=== PATIENT | female | born 1970 | race Caucasian/White ===

== ENCOUNTER 2024-06-28 23:19 | Emergency (ER) | payer BC, OTHER ==
--- NOTE | 2024-06-28 23:27 | ERPHSYRPT ---
- History of Present Illness Time Seen by Provider: 06/28/24 23:26 Source: patient Exam Limitations: no limitations Physician History: This is a 53-year-old white female patient of nurse practitioner Rolf who arrives by private vehicle on her own. Patient states that she has not felt well for approximately 2 weeks. She was seen in urgent care clinic on 06/24/2024 and they placed her on a Medrol Dosepak which she only took for a few days because she felt it was making her heart race. Patient has had prednisone in the past without any ill effects. Patient states she is also had Keflex in the past without any ill effects. Her symptoms primarily have been cough, sore throat and bodyaches. Patient works at the local [employer] and is exposed to a number of individuals that could have viral and bacterial illnesses. Patient has a history of hypertension and diabetes. She denies chest pain. She denies abdominal pain. She has not had any nausea vomiting or diarrhea symptoms. Timing/Duration: worse Cough Quality/Degree: mild, dry cough Possible Cause: no prior episodes Associated Symptoms: cough, muscle aches, sore throat Allergies/Adverse Reactions: No Known Drug Allergies Allergy (Verified 06/28/24 23:57) Home Medications: Empagliflozin [Jardiance] 10 mg PO DAILY 06/29/24 [History] Metoprolol Succinate 50 mg [Toprol Xl 50 MG] 50 mg PO DAILY 06/29/24 [History] Unknown Med 06/29/24 [History] lisinopriL [Zestril] 2.5 mg PO DAILY 06/29/24 [History] Travel Risk - International Travel Have you traveled outside of the country in past 3 weeks: No - Emerging Infectious Disease Are you exhibiting symptoms associated with any current EIDs: Yes Symptoms: Cough: New Onset, Headaches/Body Aches/, Other (Please Comment) (Sore throat) - Review of Systems Constitutional: No Symptoms Eyes: No Symptoms Ears, Nose, & Throat: Throat Pain Respiratory: Cough Cardiac: No Symptoms Abdominal/Gastrointestinal: No Symptoms Genitourinary Symptoms: No Symptoms Musculoskeletal: Arthralgias, Myalgias Skin: No Symptoms Neurological: No Symptoms Psychological: No Symptoms Endocrine: No Symptoms Hematologic/Lymphatic: No Symptoms Immunological/Allergic: No Symptoms All Other Systems: Reviewed and Negative - Past Medical History Pertinent Past Medical History: Yes - Past Surgical History Past Surgical History: Yes - Nursing Vital Signs Nursing Vital Signs: Initial Vital Signs Temperature 98.1 F 06/28/24 23:39 Pulse Rate 90 06/28/24 23:39 Respiratory Rate 16 06/28/24 23:39 Blood Pressure 135/87 06/28/24 23:39 O2 Sat by Pulse Oximetry 94 L 06/28/24 23:39 Pain Scale Pain Intensity 5 - Physical Exam General Appearance: no apparent distress, alert, anxiety Eye Exam: PERRL/EOMI, eyes nml inspection Ears, Nose, Throat Exam: normal ENT inspection, moist mucous membranes, pharyngeal erythema Neck Exam: normal inspection, non-tender, supple, full range of motion Respiratory Exam: normal breath sounds, lungs clear, airway intact, No chest tenderness, No respiratory distress Cardiovascular Exam: regular rate/rhythm, normal heart sounds, normal peripheral pulses Gastrointestinal/Abdomen Exam: soft, normal bowel sounds, No tenderness Pelvic Exam: not done Rectal Exam: not done Back Exam: normal inspection, normal range of motion, No CVA tenderness, No vertebral tenderness Extremity Exam: normal inspection, normal range of motion, pelvis stable Neurologic Exam: alert, oriented x 3, cooperative, personal care service provider II-XII nml as tested, normal mood/affect, nml cerebellar function, nml station & gait, sensation nml Skin Exam: normal color, warm, dry Lymphatic Exam: No inguinal node tender (L) SpO2 Interpretation: borderline oxygenation O2 Delivery: Room Air - Course Nursing assessment & vital signs reviewed: Yes Ordered Tests: Active Orders 24 hr Category Date Time Status CHEST 1 VIEW (PORTABLE) Stat Exams 06/28/24 23:58 Taken Medication Summary Discontinued Medications Generic Name Dose Route Start Last Admin Trade Name Nely PRN Reason Stop Dose Admin Hydrocodone Bitart/Acetaminophen 10 ml 06/29/24 00:50 06/29/24 01:10 Hydrocodone/Acetaminophen 5 Ml Udcup PO 06/29/24 00:51 10 ml STAT STA Administration Hydrocodone Bitart/Acetaminophen Confirm 06/29/24 01:04 Hydrocodone/Acetaminophen 5 Ml Udcup Administered 06/29/24 01:05 Dose 10 ml .ROUTE .STK-MED ONE Ceftriaxone Sodium 1,000 mg 06/29/24 00:50 06/29/24 01:10 Ceftriaxone Sodium 1000 Mg Inj Vial IM 06/29/24 00:51 1,000 mg STAT ONE Administration Ceftriaxone Sodium Confirm 06/29/24 01:05 Ceftriaxone Sodium 1000 Mg Inj Vial Administered 06/29/24 01:06 Dose 1,000 mg .ROUTE .STK-MED ONE Lidocaine HCl Confirm 06/29/24 01:05 Lidocaine Hcl 1% 20 Ml Mdv 20 Ml Ml Administered 06/29/24 01:06 Dose 2 ml .ROUTE .STK-MED ONE Prednisone 20 mg 06/29/24 00:50 06/29/24 01:09 Prednisone 20 Mg Tablet PO 06/29/24 00:51 20 mg STAT ONE Administration Prednisone Confirm 06/29/24 01:05 Prednisone 20 Mg Tablet Administered 06/29/24 01:06 Dose 20 mg .ROUTE .STK-MED ONE Lab/Rad Data: Laboratory Results 06/28/24 06/28/24 Range/Units 23:55 23:55 Influenza Type A Ag NEGATIVE (NEGATIVE) Influenza Type B Ag NEGATIVE (NEGATIVE) RSV (PCR) NEGATIVE (NEGATIVE) SARS-CoV-2 (PCR) NEGATIVE (NEGATIVE) Group A Strep Antibody NEGATIVE (NEGATIVE) - Progress Progress: improved, re-examined Air Movement: good Progress Note: 06/29/24 00:19 My medical decision making and the assignment of low to moderate complexity of this patient's medical issue today is based on review of the patient's past medical history, review of the patient's medication list, review the patient drug allergy list, history present illness and physical findings on examination. The workup in this patient includes viral swabs and group A strep test as well as a chest x-ray. Differential diagnosis includes but is not limited to viral illness, group A strep pharyngitis, bacterial pneumonia, upper respiratory infection 06/29/24 01:29 I interpreted the patient's laboratory data results. Based on the laboratory data results, there are no acute, emergent findings. Chest x-ray preliminary report was interpreted by me. The x-ray shows no acute cardiopulmonary process. Blood Culture(s) Obtained: No Antibiotics given: Yes Counseled pt/family regarding: lab results, diagnosis, need for follow-up, rad results Medical Desision Making - Diagnostic Testing Diagnostic test were ordered, analyzed, and reviewed by me: Yes Radiological Interpretation: Interpreted by me - Risk of complications The pt has a mod risk of morbidity or mortality based on: Need for prescription drug management - Departure Departure Disposition: Home Clinical Impression: Upper respiratory infection Condition: Stable Critical Care Time: No Referrals: CULLEN BEASLEY NP [Primary Care Provider] - Follow up/PCP as directed Additional Instructions: Drink plenty of clear liquids before advancing your diet. Monitor your blood sugar closely while taking the prednisone. Take your antibiotics and other medication as prescribed. Call your primary care provider on 07/01/2024 to make arrangements for follow-up appointment for further evaluation and management. Forms: Work/School Release Form Prescriptions: Prednisone 10 mg [Deltasone 10 mg] 10 mg PO TID #12 tablet Hydrocodone/Acetaminophen [Hydrocodone-Acetamn 7.5-325/15] 10 ml PO Q8H PRN #120 ml MDD 30 ml PRN Reason: Cough Albuterol 8 gm Mdi Hfa [Ventolin Hfa MDI] 8 gm IH Q4H #1 unit Azithromycin 250 mg [Zithromax 250 MG TABLET] 250 mg PO ZPACK #6 tablet
[2024-06-28 23:56] VITALS: TEMP 98.1
[2024-06-29] MEDS ORDERED: HYDROCODONE-ACETAMIN 2.5-108/5 ML SOLUTION ONE (01:04)
[2024-06-29] MEDS ORDERED: Rocephin 1000 MG INJ ONE (01:05)
[2024-06-29] MEDS ORDERED: DELTASONE 20 MG ONE (01:05)
[2024-06-29] MEDS ORDERED: XYLOCAINE 1% HCL 20 ML MDV ONE (01:05)
[2024-06-29] MEDS: DELTASONE 20 MG PO ONE (01:09)
[2024-06-29] MEDS: Rocephin 1000 MG INJ IM ONE (01:10)
[2024-06-29] MEDS: HYDROCODONE-ACETAMIN 2.5-108/5 ML SOLUTION PO STA (01:10)
[2024-06-29 01:16] LABS: INFLUENZA A NEGATIVE (NEGATIVE); INFLUENZA B NEGATIVE (NEGATIVE); RESPIRATORY SYNCTIAL VIRUS NEGATIVE (NEGATIVE); SARS-CoV-2 Xpert Express NEGATIVE (NEGATIVE)
[2024-06-29 01:19] VITALS: BP 112/64; PULSE 85; RESP 18; O2SAT 94
--- NOTE | 2024-06-29 06:57 | XRAY ---
Indication: Fever and cough. Comparison: None Portable apical lordotic chest inflated and clear. Heart not enlarged. Bony thorax intact. Impression: Nonacute chest.
== END 2024-06-29 01:41 | disposition home or self-care (01) ==
LOC: ED 23:19
DX: J06.9 Acute upper respiratory infection, unspecified (principal); R05.1 Acute cough; J02.9 Acute pharyngitis, unspecified; M79.10 Myalgia, unspecified site; I10 Essential (primary) hypertension; E11.9 Type 2 diabetes mellitus without complications; Z79.891 Long term (current) use of opiate analgesic; Z79.52 Long term (current) use of systemic steroids; Z79.84 Long term (current) use of oral hypoglycemic drugs
CPT/HCPCS: 0241U; 71045; 87651; 96372; 99283; J0696; A9270-GY

== ENCOUNTER 2024-12-13 18:16 | Emergency (ER) | payer BC ==
[2024-12-13 19:40] VITALS: TEMP 96.4; O2SAT 97
--- NOTE | 2024-12-13 20:03 | ERPHSYRPT ---
- History of Present Illness Time Seen by Provider: 12/13/24 19:50 Historian: patient, family Exam Limitations: no limitations Patient Subjective Stated Complaint: "I've been having pain in my left side for a couple days and I wasn't really able to pee. It scherer when I pee and I felt like I couldn't pee yesterday. I got a Toradol shot at work." Triage Nursing Assessment: Pt presents to ER with complaints of left sided abdominal pains x 2-3 days. States pain radiates from LUQ to LLQ and into left flank. Denies nausea, vomiting. States has had some diarrhea and trouble urinating. States had hesitancy to urinate yesterday and urgency today. Pt is alert and oriented x 3. Skin is pink, warm, and dry. Respirations are easy. Rates pain 6/10 scale. Allergies/Adverse Reactions: Penicillins Allergy (Verified 12/13/24 19:40) Home Medications: Metoprolol Succinate 50 mg [Toprol Xl 50 MG] 50 mg PO DAILY 06/29/24 [History] Sacubitril/Valsartan [Entresto 24 mg-26 mg Tablet] 1 tab PO DAILY 12/13/24 [History] Spironolactone 25 mg [Aldactone 25 MG] 25 mg PO DAILY 12/13/24 [History] Hx Tetanus, Diphtheria Vaccination/Date Given: Yes Hx Influenza Vaccination/Date Given: No Hx Pneumococcal Vaccination/Date Given: No Immunizations Up to Date: No Travel Risk - International Travel Have you traveled outside of the country in past 3 weeks: No - Emerging Infectious Disease Are you exhibiting symptoms associated with any current EIDs: No Symptoms: Cough: New Onset, Headaches/Body Aches/, Other (Please Comment) (Sore throat) - Past Medical History Pertinent Past Medical History: Yes Neurological History: No Pertinent History ENT History: No Pertinent History Cardiac History: Congestive Heart Failure Respiratory History: No Pertinent History Endocrine Medical History: No Pertinent History Musculoskeletal History: No Pertinent History GI Medical History: No Pertinent History History: No Pertinent History Psycho-Social History: No Pertinent History Female Reproductive Disorders: No Pertinent History - Past Surgical History Past Surgical History: Yes Neuro Surgical History: No Pertinent History Cardiac: No Pertinent History Respiratory: No Pertinent History Gastrointestinal: Cholecystectomy Genitourinary: No Pertinent History Musculoskeletal: Joint Replacement Female Surgical History: Tubal Ligation Other Surgical History: tubal ligation with problems- knicked arteries and had to open. knee, shoulder, carpal tunnel, sinus surgery - Female History Hx Last Menstrual Period: 6 years ago Hx Now: No - Social History Smoking Status: Former smoker Exposure to second hand smoke: No Drug Use: none - Social Determinants of Health Will the patient participate in the screening: Yes Do you worry about a steady place to live?: No Do you have any problems with any of the following?: No known problems In the past 12 months,have you had to go without utilities?: No Transportation Issues: No Has anyone in your support network made you feel unsafe?: No Have you or anyone in your house had to go w/o enough food: No - Nursing Vital Signs Nursing Vital Signs: Initial Vital Signs Temperature 96.4 F 12/13/24 19:33 Pulse Rate 81 12/13/24 19:33 Respiratory Rate 16 12/13/24 19:33 Blood Pressure 147/96 12/13/24 19:33 O2 Sat by Pulse Oximetry 97 12/13/24 19:33 Pain Scale Pain Intensity 6 - Physical Exam SpO2: 97 Ordered Tests: Active Orders 24 hr Category Date Time Status IV Insertion STAT Care 12/13/24 19:44 Active ABDOMEN AND PELVIS W/0 CONTRAS [CT] Stat Exams 12/13/24 19:44 Taken AMYLASE Stat Lab 12/13/24 20:20 Completed CBC W DIFF Stat Lab 12/13/24 20:20 Completed CMP Stat Lab 12/13/24 20:20 Completed LIPASE Stat Lab 12/13/24 20:20 Completed UA W/RFX UR CULTURE Stat Lab 12/13/24 19:46 Completed Medication Summary Discontinued Medications Generic Name Dose Route Start Last Admin Trade Name Freq PRN Reason Stop Dose Admin Hydromorphone HCl 1 mg 12/13/24 19:45 Hydromorphone 1 Mg/1ml Inj IV 12/13/24 19:46 STAT ONE Ondansetron HCl 4 mg 12/13/24 19:44 Ondansetron Hcl 4 Mg/2 Ml Vial IV 12/13/24 19:45 STAT ONE Lab/Rad Data: Laboratory Result Diagrams 12/13/24 20:20 12/13/24 20:20 Laboratory Results 12/13/24 12/13/24 12/13/24 Range/Units 20:20 20:20 19:46 WBC 6.5 (3.98-10.04) x10^3/uL RBC 3.71 L (3.93-5.22) x10^6/uL Hgb 13.2 (11.2-15.7) g/dL Hct 37.3 (34.1-44.9) % MCV 100.5 H (79.4-94.8) fL MCH 35.6 H (25.6-32.2) pg MCHC 35.4 (32.2-35.5) g/dL RDW 12.8 (11.7-14.4) % Plt Count 129 L (182-369) x10^3/uL MPV 9.6 (9.4-12.3) fL Gran % 61.8 (34.0-71.1) % Immature Gran % (Auto) 0.2 (0.001-0.429) % Nucleat RBC Rel Count 0.0 (0.00-0.2) % Eos # (Auto) 0.12 (0.04-0.36) x10^3/uL Immature Gran # (Auto) 0.01 (0.001-0.031) x10^3u/L Absolute Lymphs (auto) 1.67 (1.18-3.74) x10^3/uL Absolute Monos (auto) 0.67 (0.24-0.86) x10^3/uL Absolute Nucleated RBC 0.00 (0.00-0.012) x10^3u/L Lymphocytes % 25.6 (19.3-51.7) % Monocytes % 10.3 (4.7-12.5) % Eosinophils % 1.8 (0.7-5.8) % Basophils % 0.3 (0.1-1.2) % Absolute Granulocytes 4.04 (1.56-6.13) x10^3/uL Basophils # 0.02 (0.01-0.08) x10^3/uL Sodium 134 L (135-145) mmol/L Potassium 4.5 (3.5-5.1) mmol/L Chloride 102 (98-107) mmol/L Carbon Dioxide 20 L (22-30) mmol/L Anion Gap 16.8 H (5-15) MEQ/L BUN 28 H (7-17) mg/dL Creatinine 1.28 H (0.52-1.04) mg/dL Estimated GFR 49.8 ML/MIN Glucose 92 (74-106) mg/dL Calcium 9.1 (8.4-10.2) mg/dL Total Bilirubin 1.40 H (0.2-1.3) mg/dL AST 46 H (14-36) U/L ALT 31 (0-35) U/L Alkaline Phosphatase 62 (38-126) U/L Serum Total Protein 7.2 (6.3-8.2) g/dL Albumin 4.5 (3.5-5.0) g/dL Amylase 63 (30-110) U/L Lipase 164 (23-300) U/L Urine Color Yellow (Yellow) Urine Appearance Clear (Clear) Urine pH 5.5 (4.6-8.0) Ur Specific [place] 1.010 (1.005-1.030) Urine Protein Negative (Negative) Urine Glucose (UA) Negative (Negative) mg/dL Urine Ketones Negative (Negative) Urine Blood Negative (Negative) Urine Nitrite Negative (Negative) Urine Bilirubin Negative (Negative) Urine Urobilinogen 0.2 (0.2) mg/dL Ur Leukocyte Esterase Negative (Negative) U Hyaline Cast (Auto) NONE SEEN (0-2) /LPF Urine Microscopic RBC 0-2 (0-5) /HPF Urine Microscopic WBC 0-2 (0-5) /HPF Ur Epithelial Cells None Seen (None Seen) /HPF Urine Bacteria None Seen (None Seen) /HPF Urine Culture Reflexed NO (NO) - Progress Progress: improved, re-examined Progress Note: 12/13/24 21:24 My medical decision making and the assignment of moderate complexity to this patient's medical issue today is based on review of the patient's past medical history, review the patient's medication list, reviewed patient drug allergy list, history present illness and physical findings on examination. The workup in this patient includes placement of intravenous line, CBC, CMP amylase, lipase, urinalysis and CT scan of the abdomen pelvis without contrast. The patient refuses intravenous line placement. She also refuses any narcotic medication. Differential diagnosis includes but is not limited to urinary tract infection, pyelonephritis, ureterolithiasis, pancreatitis, colitis, diverticulitis I interpreted the patient's laboratory data results. There are no comparison labs from this hospital. The patient's GFR is 49.8. Creatinine is 1.28. Total bili is 1.4 AST is 46. There is no evidence of any acute, emergent medical issues based on the laboratory data results. CT scan of the abdomen pelvis without contrast was interpreted by the radiologist and I reviewed the impression. There were no comparison films. The radiologist impression states a 6 mm urinary bladder stone. Mild left hydronephrosis with tiny amount of perinephric fluid and mild hydroureter.. This is consistent with passage of a stone. Counseled pt/family regarding: lab results, diagnosis, rad results Medical Desision Making - Independent Historian Additional History obtained from: Family - Diagnostic Testing Diagnostic test were ordered, analyzed, and reviewed by me: Yes Radiological Interpretation: Reviewed by me, Teleradiologist Report - Risk of complications Low Risk: Low risk of morbidity from additional dx testing or treatment - Departure Departure Disposition: Home Clinical Impression: Left flank pain, Hydroureter, left, Hydronephrosis, left Condition: Stable Critical Care Time: No Referrals: CULLEN BEASLEY NP [Primary Care Provider] - Follow up/PCP as directed Additional Instructions: Drink plenty fluids. Use Tylenol and ibuprofen for pain and fever control. Take all your other medications as prescribed.
[2024-12-13 20:10] VITALS: RESP 18
[2024-12-13 20:22] LABS: Absolute Neutrophil Ct (ANC) 4.04 x10^3/uL (1.56-6.13); BASOPHIL % 0.3 % (0.1-1.2); Basophil (Absolute #) 0.02 x10^3/uL (0.01-0.08); Eosinophil % 1.8 % (0.7-5.8); Eosinophil (Absolute #) 0.12 x10^3/uL (0.04-0.36); Hematocrit 37.3 % (34.1-44.9); Hemoglobin 13.2 g/dL (11.2-15.7); IMMATURE GRAN # 0.01 x10^3u/L (0.001-0.031); IMMATURE GRAN % 0.2 % (0.001-0.429); Lymphocyte (Absolute #) 1.67 x10^3/uL (1.18-3.74); Lymphocytes % 25.6 % (19.3-51.7); Mean Cell Volume 100.5 fL (79.4-94.8); Mean Corpuscular Hemoglobin 35.6 pg (25.6-32.2); Mean Corpuscular Hgb Concent. 35.4 g/dL (32.2-35.5); Mean Platelet Volume 9.6 fL (9.4-12.3); Monocyte (Absolute #) 0.67 x10^3/uL (0.24-0.86); Monocytes % 10.3 % (4.7-12.5); Neutrophil % 61.8 % (34.0-71.1); Platelet Count 129 x10^3/uL (182-369); Red Blood Count 3.71 x10^6/uL (3.93-5.22); Red Cell Distribution Width 12.8 % (11.7-14.4); White Blood Count 6.5 x10^3/uL (3.98-10.04)
[2024-12-13 20:30] LABS: Appearance Clear (Clear); Bacteria None Seen /HPF (None Seen); Bilirubin Negative (Negative); Blood Negative (Negative); Epithelial Cells None Seen /HPF (None Seen); Glucose, Urine Negative (Negative); Hyaline Casts NONE SEEN /LPF (0-2); Ketones Negative (Negative); Leukocyte Esterase Negative (Negative); Nitrite Negative (Negative); Ph 5.5 (4.6-8.0); Protein,Urine Dip Negative (Negative); RBC 0-2 /HPF (0-5); Urobilinogen 0.2 mg/dL (0.2); WBC 0-2 /HPF (0-5)
[2024-12-13 20:49] LABS: ALBUMIN 4.5 g/dL (3.5-5.0); ANION GAP 16.8 MEQ/L (5-15); BILIRUBIN,TOTAL 1.4 mg/dL (0.2-1.3); Calcium 9.1 mg/dL (8.4-10.2); Creatinine 1 1.28 mg/dL (0.52-1.04); EST GLOMERULAR FILTRATION RATE 49.8 ML/MIN; Potassium 4.5 mmol/L (3.5-5.1); Total Protein 7.2 g/dL (6.3-8.2)
[2024-12-13 21:29] VITALS: BP 169/92; PULSE 80
[2024-12-13] MEDS: Zofran 4 MG/2 ML VIAL IV ONE (21:35)
[2024-12-13] MEDS: Hydromorphone 1 mg/ml Injection IV ONE (21:36)
[2024-12-13] MEDS ORDERED: PYRIDIUM 200 MG ONE (21:41)
[2024-12-13] MEDS: PYRIDIUM 200 MG PO ONE (21:43)
--- NOTE | 2024-12-14 08:10 | XRAY ---
Indication: Left flank pain. Multiple contiguous axial images obtained through the abdomen and pelvis without contrast using renal stone protocol. Comparison: None Lung bases clear. Heart is not enlarged. Urinary bladder demonstrates 6 mm calculus adjacent to left UVJ. Mild left renal edema,, tiny perinephric fluid, hydronephrosis, and hydroureter favors recent passage of said calculus. No other renal calculus/calcifications. Noncontrasted stomach and bowel loops appear nonobstructed. Previous cholecystectomy. No free air. Remaining liver, pancreas, spleen, adrenal glands, right kidney, right ureter, and uterus are unremarkable for noncontrast exam. Aorta is normal in course and caliber. Multiple distal aortocaval surgical clips. Osseous structures intact with mild L4-S1 degenerative spondylosis with 2 mm L4 listhesis. Impression: 1. 6 mm urinary bladder calculus with left-sided obstructive uropathy findings as detailed. 2. Incidental L4-S1 degenerative spondylosis with minimal grade 1 L4 listhesis.
== END 2024-12-13 21:54 | disposition home or self-care (01) ==
LOC: ED 18:16
DX: N13.30 Unspecified hydronephrosis (principal); N13.4 Hydroureter; R10.12 Left upper quadrant pain; R10.32 Left lower quadrant pain; R10.9 Unspecified abdominal pain; R39.15 Urgency of urination; Z79.899 Other long term (current) drug therapy
CPT/HCPCS: 36415; 74176; 80053; 81001; 82150; 83690; 85025; 99284; A9270-GY

== ENCOUNTER 2024-12-24 04:52 | Emergency (ER) | payer BC ==
[2024-12-24 05:30] VITALS: TEMP 96.6
[2024-12-24] MEDS ORDERED: DECADRON 10MG INJ. ONE (05:51)
[2024-12-24] MEDS ORDERED: TORAdol 30 mg Injection ONE (05:51)
[2024-12-24] MEDS: TORAdol 30 mg Injection IM ONE (05:52)
--- NOTE | 2024-12-24 05:52 | ERPHSYRPT ---
- History of Present Illness Time Seen by Provider: 12/24/24 05:47 Source: patient Exam Limitations: no limitations Patient Subjective Stated Complaint: c/o back pain and spasms Triage Nursing Assessment: patient brought to ED by mother woth c/o of bilat back spasms and pain. patient states that the pain started yesterday and got worse this morning. patient rates pain 8/10 and says the pain radiates to her lower abdomen and down her legs. patient's vitals wnl, skin w/n/d, pulses normal, gait steady, patient doesn't appear to be in any distress at this time. Physician History: Patient is a 54-year-old female with a history of chronic back pain and spasms presents to our ED for evaluation of back pain. Patient's pain is normally treated with meloxicam. Patient reportedly ran out. Patient is currently scheduled to see her family doctor tomorrow. Patient states her back spasms got worse overnight and awoke her from her sleep. Patient rates her pain 8 out of 10. No trauma no fever. Pain tends to radiate into her buttock and suprapubic region. Patient was recently diagnosed with a kidney stone that had passed. Stone was sitting in her bladder. Patient had a CAT scan approximately 1 week ago. Blood work was normal. 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 Patient denies interval trauma. No fever no recent back procedure no saddle anesthesia no change in bowel bladder function. No lower extremity weakness. Patient otherwise feels well. She voices no other complaints or concerns at this time. Portions of this note were created with voice recognition technology. There may be grammatical, spelling, punctuation or sound alike errors Timing/Duration: today Method of Injury: unknown Quality: aching Back Pain Location: lumbar spine Back Pain Radiation: buttocks Severity of Pain-Max: moderate Severity of Pain-Current: mild Modifying Factors: Improves With: movement Associated Symptoms: denies symptoms Previous symptoms: no prior history Allergies/Adverse Reactions: Penicillins Allergy (Verified 12/24/24 05:22) Home Medications: Metoprolol Succinate 50 mg [Toprol Xl 50 MG] 50 mg PO DAILY 06/29/24 [History] Sacubitril/Valsartan [Entresto 24 mg-26 mg Tablet] 1 tab PO DAILY 12/13/24 [History] Spironolactone 25 mg [Aldactone 25 MG] 25 mg PO DAILY 12/13/24 [History] Meloxicam [Mobic] 15 mg PO DAILY 12/24/24 [History] Hx Tetanus, Diphtheria Vaccination/Date Given: No (unknown) Hx Influenza Vaccination/Date Given: No Hx Pneumococcal Vaccination/Date Given: No Travel Risk - International Travel Have you traveled outside of the country in past 3 weeks: No - Emerging Infectious Disease Are you exhibiting symptoms associated with any current EIDs: No Symptoms: Cough: New Onset, Headaches/Body Aches/, Other (Please Comment) (Sore throat) - Review of Systems Constitutional: No Symptoms, No Fever, No Chills Eyes: No Symptoms Ears, Nose, & Throat: No Symptoms Respiratory: No Symptoms, No Cough, No Dyspnea Cardiac: No Symptoms, No Chest Pain, No Edema, No Syncope Abdominal/Gastrointestinal: No Symptoms, No Abdominal Pain, No Nausea, No Vomiting, No Diarrhea Genitourinary Symptoms: No Symptoms, No Dysuria Musculoskeletal: No Symptoms, No Back Pain, No Neck Pain Skin: No Symptoms, No Rash Neurological: No Symptoms, No Dizziness, No Focal Weakness, No Sensory Changes Psychological: No Symptoms Endocrine: No Symptoms Hematologic/Lymphatic: No Symptoms Immunological/Allergic: No Symptoms All Other Systems: Reviewed and Negative - Past Medical History Pertinent Past Medical History: Yes Neurological History: No Pertinent History ENT History: No Pertinent History Cardiac History: Congestive Heart Failure Respiratory History: No Pertinent History Endocrine Medical History: No Pertinent History Musculoskeletal History: No Pertinent History GI Medical History: No Pertinent History History: No Pertinent History Psycho-Social History: No Pertinent History Female Reproductive Disorders: No Pertinent History - Past Surgical History Past Surgical History: Yes Neuro Surgical History: No Pertinent History Cardiac: No Pertinent History Respiratory: No Pertinent History Gastrointestinal: Cholecystectomy Genitourinary: No Pertinent History Musculoskeletal: Joint Replacement Female Surgical History: Tubal Ligation Other Surgical History: tubal ligation with problems- knicked arteries and had to open. knee, shoulder, carpal tunnel, sinus surgery - Female History Hx Last Menstrual Period: 8 years ago Hx Now: No (tubal) - Social History Smoking Status: Never smoker Exposure to second hand smoke: Yes Drug Use: none - Social Determinants of Health Will the patient participate in the screening: Yes Do you worry about a steady place to live?: No Do you have any problems with any of the following?: No known problems In the past 12 months,have you had to go without utilities?: No Transportation Issues: No Has anyone in your support network made you feel unsafe?: No Have you or anyone in your house had to go w/o enough food: No - Nursing Vital Signs Nursing Vital Signs: Initial Vital Signs Temperature 96.6 F 12/24/24 05:22 Pulse Rate 82 12/24/24 05:22 Respiratory Rate 19 12/24/24 05:22 Blood Pressure 112/84 12/24/24 05:22 O2 Sat by Pulse Oximetry 96 12/24/24 05:22 Pain Scale Pain Intensity 8 - Physical Exam General Appearance: no apparent distress, alert Eye Exam: PERRL/EOMI, eyes nml inspection Neck Exam: normal inspection, full range of motion, No meningismus, No midline tenderness Respiratory Exam: normal breath sounds, lungs clear, airway intact, No respiratory distress Cardiovascular Exam: regular rate/rhythm, normal heart sounds Gastrointestinal Exam: soft, No tenderness, No mass Extremity Exam: normal inspection, normal range of motion, No calf tenderness, No pedal edema Neurologic Exam: alert, oriented x 3, cooperative, 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 as tested, normal mood/affect, nml station & gait, sensation nml, No motor deficits Skin Exam: normal color, warm, dry, No rash Lymphatic Exam: No adenopathy SpO2 Interpretation: normal SpO2: 97 O2 Delivery: Room Air - Course Nursing assessment & vital signs reviewed: Yes Ordered Tests: Active Orders 24 hr Category Date Time Status UA W/RFX UR CULTURE Stat Lab 12/24/24 05:44 Completed Medication Summary Discontinued Medications Generic Name Dose Route Start Last Admin Trade Name Freq PRN Reason Stop Dose Admin Dexamethasone Sodium Phosphate 8 mg 12/24/24 05:44 12/24/24 05:53 Dexamethasone Sod Phosphate 10 Mg/Ml IM 12/24/24 05:45 8 mg STAT ONE Administration Dexamethasone Sodium Phosphate Confirm 12/24/24 05:51 Dexamethasone Sod Phosphate 10 Mg/Ml Administered 12/24/24 05:52 Dose 10 mg .ROUTE .STK-MED ONE Ketorolac Tromethamine 30 mg 12/24/24 05:44 12/24/24 05:52 Ketorolac Tromethamine 30 Mg/Ml Inj IM 12/24/24 05:45 30 mg STAT ONE Administration Ketorolac Tromethamine Confirm 12/24/24 05:51 Ketorolac Tromethamine 30 Mg/Ml Inj Administered 12/24/24 05:52 Dose 30 mg .ROUTE .STK-MED ONE Methocarbamol 500 mg 12/24/24 06:26 Methocarbamol 500 Mg Tablet PO 12/24/24 06:27 ONCE STA Lab/Rad Data: Laboratory Results 12/24/24 Range/Units 05:44 Urine Color Yellow (Yellow) Urine Appearance Clear (Clear) Urine pH 5.0 (4.6-8.0) Ur Specific Baxter 1.025 (1.005-1.030) Urine Protein Negative (Negative) Urine Glucose (UA) Negative (Negative) mg/dL Urine Ketones Trace A (Negative) Urine Blood Negative (Negative) Urine Nitrite Negative (Negative) Urine Bilirubin Negative (Negative) Urine Urobilinogen 0.2 (0.2) mg/dL Ur Leukocyte Esterase Negative (Negative) U Hyaline Cast (Auto) NONE SEEN (0-2) /LPF Urine Microscopic RBC 0-2 (0-5) /HPF Urine Microscopic WBC 0-2 (0-5) /HPF Ur Epithelial Cells Moderate A (None Seen) /HPF Urine Bacteria None Seen (None Seen) /HPF Urine Culture Reflexed NO (NO) - Progress Progress: improved Progress Note: 54-year-old female presents to our ED with acute on chronic back pain. Physical exam reveals some tenderness and spasms to the lumbar spine area. Patient received IM Toradol and Decadron. Patient received an oral dose of Robaxin per her request. A prescription for Robaxin and Toradol forwarded to patient's pharmacy. Patient was in our ED on December 14 diagnosed with a kidney stone that had passed. She had a CT then. She also had labs and urine which were all normal. No interval trauma no fever no saddle anesthesia no change in bowel bladder function. UA negative for UTI. Medications administered. No indication for further workup at this time. Vitals are within normal limits. Will discharge patient home. Patient has a follow-up appointment with her doctor tomorrow. She voices no other complaints or concerns at this time. Portions of this note were created with voice recognition technology. There may be grammatical, spelling, punctuation or sound alike errors Complexity of problem addressed is moderate acute complicated. No critical care time. Complex of data reviewed and analyzed is moderate. Test ordered chest reviewed results analyzed and correlated clinically with history and physical exam. Risk of complication and or risk of morbidity/mortality of patient management is moderate. A prescription for Toradol and Robaxin forwarded to patient's pharmacy. Vital stable. Time spent to discharge patient is approximately 10 minutes. Plan of care established for shared decision making. No social determinants of health present to impede follow-up. Portions of this note were created with voice recognition technology. There may be grammatical, spelling, punctuation or sound alike errors 12/24/24 06:31 12/24/24 06:33 Counseled pt/family regarding: lab results, diagnosis, need for follow-up - Departure Departure Disposition: Home Clinical Impression: Back pain Condition: Stable Critical Care Time: No Referrals: CULLEN BEASLEY, SALES [employer]GRAM COORDINATOR [Primary Care Provider] - Follow up/PCP as directed Additional Instructions: Discharge/Care Plan ROSENDO BOURGEOIS was seen on 12/24/24 in the Emergency Room. The patient was counseled regarding Diagnosis,Lab results, Imaging studies, need for follow up and when to return to the Emergency Room. Prescriptions given: Discharge Note I have spoken with the patient and/or caregivers. I have explained the patient's condition, diagnosis and treatment plan based on the information available to me at this time. I have answered the patient's and/or caregiver's questions and addressed any concerns. The patient and/or caregivers have as good understanding of the patient's diagnosis, condition and treatment plan as can be expected at this point. The vital signs have been stable. The patient's condition is stable and appropriate for discharge from the emergency department. The patient will pursue further outpatient evaluation with the primary care physician or other designated or consulting physician as outlined in the discharge instructions. The patient and/or caregivers are agreeable to this plan of care and follow-up instructions have been explained in detail. The patient and/or caregivers have received these instruction. The patient/and or caregivers are aware that any significant change in condition or worsening of symptoms should prompt an immediate return to this or the closest emergency department or call 911. Prescriptions: Methocarbamol [Robaxin] 500 mg PO TID PRN 5 Days #15 tablet PRN Reason: Pain Ketorolac Trometh 10 mg Tab [TORAdol 10 MG TABLET] 10 mg PO TID 5 Days #15 tablet
[2024-12-24] MEDS: DECADRON 10MG INJ. IM ONE (05:53)
[2024-12-24 05:59] LABS: Appearance Clear (Clear); Bacteria None Seen /HPF (None Seen); Bilirubin Negative (Negative); Blood Negative (Negative); Epithelial Cells Moderate /HPF (None Seen); Glucose, Urine Negative (Negative); Hyaline Casts NONE SEEN /LPF (0-2); Ketones Trace (Negative); Leukocyte Esterase Negative (Negative); Nitrite Negative (Negative); Protein,Urine Dip Negative (Negative); RBC 0-2 /HPF (0-5); Specific Gravity 1.025 (1.005-1.030); Urobilinogen 0.2 mg/dL (0.2); WBC 0-2 /HPF (0-5)
[2024-12-24 06:16] VITALS: O2SAT 97
[2024-12-24] MEDS: Robaxin PO STA ×2 (06:48→06:53)
[2024-12-24] MEDS: Cyclobenzaprine 10 MG PO ONE (06:53)
[2024-12-24 06:59] VITALS: BP 130/81; PULSE 87; RESP 19
== END 2024-12-24 06:58 | disposition home or self-care (01) ==
LOC: ED 04:52
DX: M54.9 Dorsalgia, unspecified (principal); Z79.899 Other long term (current) drug therapy
CPT/HCPCS: 81001; 96372; 99283; 99284; J1100; J1885; A9270-GY